=== PATIENT | female | born 1975 | race Caucasian/White ===

== ENCOUNTER → 2020-10-30 13:15 | Outpatient (CLI) | payer OTHER, SELFPAY ==
--- NOTE | ~2020-10-30 | US_ITS ---
EXAMINATION: US pelvic complete w TV EXAM DATE: 10/30/2020 13:50 INDICATION: Ovarian cyst. TECHNIQUE: Pelvic transabdominal and transvaginal sonogram was performed. There are multiple graysca le and Doppler images available for interpretation. There is no prior study for comparison. FINDINGS: Uterus measures 8.8 x 4.5 x 4.8 cm, and is morphologically normal. Endometrial stripe erica sures 6 mm, within normal limits. There is no free pelvic fluid. Right adnexa: Right ovary not identified. Left adnexa: The ovary measures 8.2 x 5.7 x 6.3 cm, with a cystic region measuring 3.3 x 3.0 x 3.6 cm . Ovarian vascular flow confirmed. IMPRESSION: Left ovarian cystic mass, differential diagnosis including endometrioma, hemorrhagic cyst , cystic ovarian neoplasm. Consider 6 week follow-up pelvic sonogram. Reviewed, dictated and finalized at location A. [facility] SERVICE REPRESENTATIVE IMPRESSION: Left ovarian cystic mass, differential diagnosis including endometr ioma, hemorrhagic cyst, cystic ovarian neoplasm. Consider 6 week follow-up pelv ic sonogram.
== END ==
PROVIDERS: PCP Family Medicine; Visit Provider Obstetrics & Gynecology
DX: N83.292 Other ovarian cyst, left side (principal)
CPT/HCPCS: 76830; 76856

== ENCOUNTER 2025-08-21 09:19 | Outpatient (CLI) | payer OTHER, SELFPAY ==
--- NOTE | ~2025-08-21 | MM_ITS ---
EXAMINATION: MM screening [facility] BI w chanelle HISTORY: Screening TECHNIQUE: Craniocaudal and mediolateral oblique 3-D tomosynthesis images were obtained and synthetic 2-D images were generated. CAD analysis was submitted and interpreted. COMPARISON: Comparison to multiple prior studies sequentially, with oldest reviewed study dated 06/12/2018. BREAST PARENCHYMAL COMPOSITION: Not dense: There are scattered areas of fibroglandular density. FINDINGS: There is no evidence of suspicious mass, calcification, or architectural distortion to suggest malignancy in either breast. There has been no suspicious interval change. IMPRESSION: 1. No mammographic evidence of malignancy. 2. Recommend routine screening mammography in one year. BI-RADS Category 1: Negative Reviewed, dictated and finalized at location B.
== END 2025-08-21 09:20 | disposition home or self-care (01) ==
PROVIDERS: PCP Nurse Practitioner; Visit Provider Nurse Practitioner
DX: Z12.31 Encounter for screening mammogram for malignant neoplasm of breast (principal)
CPT/HCPCS: 77063; 77067